=== PATIENT | male | born 1950 | race Two or more races ===

== ENCOUNTER 2024-05-06 04:03 | Day surgery (SDC) | payer OTHER ==
[2024-04-28 14:38] VITALS: BMI 24.2
[2024-05-06] MEDS ORDERED: ACETAMINOPHEN 500 MG TABLET (FP) PO PRN (09:22)
[2024-05-06] MEDS: LIDOCAINE 1% P/F 10 MG/ML VIAL INF ONE (15:32)
[2024-05-06] MEDS: DEXAMETHASONE SOD PHOSPHATE 20 MG/5 ML VIAL IM ONE (15:33)
[2024-05-06] MEDS: LIDOCAINE HCL/PF 2% SDV 5ML VIAL SQ ONE (15:33)
[2024-05-06 16:00] VITALS: BP 109/52; PULSE 74; RESP 18; TEMP 98.7
== END 2024-05-06 16:00 | disposition home or self-care (01) ==
LOC: JASU-SURG 04:03
PROVIDERS: ATTEND Pain Medicine Pain Medicine
PROC: 3E0R3BZ Introduction of Anesthetic Agent into Spinal Canal, Percutaneous Approach (ICD-10-PCS; 2024-05-06)
PROC: 3E0R33Z Introduction of Anti-inflammatory into Spinal Canal, Percutaneous Approach (ICD-10-PCS; principal; 2024-05-06 16:00)
DX: M47.816 Spondylosis without myelopathy or radiculopathy, lumbar region (principal); M54.16 Radiculopathy, lumbar region
CPT/HCPCS: 76000-TC-FY

== ENCOUNTER 2024-06-24 06:15 | Day surgery (SDC) | payer OTHER ==
[2024-06-23 15:48] VITALS: BMI 23.7
[2024-06-24] MEDS ORDERED: LIDOCAINE HCL/PF 1% SDV 5ML VIAL ONE (07:10)
[2024-06-24 07:39] VITALS: RESP 18
[2024-06-24] MEDS: LIDOCAINE 1% P/F 10 MG/ML VIAL PNB ONE (10:17)
[2024-06-24 11:44] VITALS: BP 147/73; PULSE 74; TEMP 97
== END 2024-06-24 11:55 | disposition home or self-care (01) ==
LOC: JASU-SURG 06:15
PROVIDERS: ATTEND Pain Medicine Pain Medicine
PROC: 01HY3MZ Insertion of Neurostimulator Lead into Peripheral Nerve, Percutaneous Approach (ICD-10-PCS; principal; 2024-06-24 09:00)
DX: G89.4 Chronic pain syndrome (principal)
CPT/HCPCS: 64555; C1778

== ENCOUNTER 2024-07-15 04:07 | Day surgery (SDC) | payer OTHER ==
[2024-07-12 16:48] VITALS: BMI 24.0
[2024-07-15 06:48] VITALS: RESP 18
[2024-07-15] MEDS ORDERED: LIDOCAINE HCL/PF 1% SDV 5ML VIAL ONE (07:06)
[2024-07-15] MEDS: LIDOCAINE HCL 1% PRESERVATIVE FREE - 30ML VIAL IJ ONE ×3 (08:37)
[2024-07-15 11:10] VITALS: BP 124/62; PULSE 62; TEMP 97.8
[2024-07-15] MEDS ORDERED: ACETAMINOPHEN 500 MG TABLET (FP) PO PRN (12:56)
== END 2024-07-15 10:06 | disposition home or self-care (01) ==
LOC: JASU-SURG 04:07
PROVIDERS: ATTEND Pain Medicine Pain Medicine
PROC: 01HY3MZ Insertion of Neurostimulator Lead into Peripheral Nerve, Percutaneous Approach (ICD-10-PCS; principal; 2024-07-15 08:00)
DX: G89.4 Chronic pain syndrome (principal)
CPT/HCPCS: 64555; C1778; 76000-TC-FY

== ENCOUNTER 2024-10-12 22:16 | Inpatient (IN) | payer OTHER ==
[2024-10-12] MEDS ORDERED: MORPHINE SULFATE 2 MG/ML SYRINGE ONE (23:16)
[2024-10-12] MEDS: morphine CARPU-JECT 2 MG/1 ML DISP.SYRIN IVPUSH ONE (23:34)
[2024-10-12 23:38] LABS: BASO % 0.3 % (0-2.0); EOS % 5.4 % (0-4.5); HEMATOCRIT 33.6 % (35.4-49); HEMOGLOBIN 11.4 GM/dL (11.7-16.9); LYMPH % 7.5 % (8-40); MCH 31.5 pg (25.7-33.7); MEAN CELL VOLUME 92.8 fl (80-96); MEAN PLT VOLUME 9.2 fl (7.5-11.1); MONO % 4.6 % (3.8-10.2); NEUT % 82.2 % (42.8-82.8); PLATELET COUNT 110 10^3/uL (134-434); RBC 3.62 M/mm3 (4.00-5.60); RDW 14.3 % (11.9-15.9); WHITE BLOOD COUNT 7.2 K/mm3 (4.0-10.0)
[2024-10-12 23:40] LABS: EPI CELLS 2 /uL (0-25.1); HYALINE CASTS 1 /uL (0-3.1); URINE APPEARANCE CLEAR; URINE BACTERIA 3 /uL (0-1359); URINE BILIRUBIN 2+ (NEGATIVE); URINE COLOR DK YELLOW; URINE GLUCOSE (UA) NEGATIVE (NEGATIVE); URINE KETONE TRACE (NEGATIVE); URINE LEUK ESTERASE NEGATIVE (NEGATIVE); URINE NITRITE NEGATIVE (NEGATIVE); URINE PROTEIN 2+ (NEGATIVE); URINE RBC 35 /uL (0-23.9); URINE WBC 7 /uL (0-25.8)
[2024-10-12 23:44] LABS: INR 1.05 (0.83-1.09); PROTHROMBIN TIME (PATIENT) 12.1 SEC (9.7-13.0)
[2024-10-12 23:47] LABS: ACTIVATED PTT 39.3 SECONDS (25.2-36.5)
[2024-10-13 00:04] LABS: POTASSIUM 5.1 mmol/L (3.5-5.1)
[2024-10-13 00:06] LABS: CALCIUM 9.9 mg/dL (8.5-10.1)
[2024-10-13 00:07] LABS: BLOOD UREA NITROGEN 33.4 mg/dL (7-18)
[2024-10-13 00:09] LABS: CREATININE 1.5 mg/dL (0.55-1.3)
[2024-10-13 00:10] LABS: PHOSPHOROUS 3.5 mg/dL (2.5-4.9)
[2024-10-13 00:11] LABS: BILIRUBIN,TOTAL 5.9 mg/dL (0.2-1); TOT PROT 7.2 g/dl (6.4-8.2)
[2024-10-13] MEDS ORDERED: HEPARIN NA (PORCINE) 5,000 UNITS/ML 1ML VIAL SQ SCH (06:00)
[2024-10-13] MEDS: SODIUM CHLORIDE 1,000 ML IV SCH (06:11)
[2024-10-13] MEDS ORDERED: MORPHINE SULFATE 2 MG/ML SYRINGE IVPUSH PRN (06:15)
[2024-10-13] MEDS: INSULIN ASPART SLIDING SCALE (NOVOLOG) 1 VIAL SQ SCH (07:05)
[2024-10-13 07:58] LABS: HEMATOCRIT 26.8 % (35.4-49); HEMOGLOBIN 9.2 GM/dL (11.7-16.9); MCH 32.1 pg (25.7-33.7); MCHC 34.5 g/dl (32.0-35.9); MEAN CELL VOLUME 93.1 fl (80-96); MEAN PLT VOLUME 9.3 fl (7.5-11.1); PLATELET COUNT 110 10^3/uL (134-434); RBC 2.88 M/mm3 (4.00-5.60); RDW 14.3 % (11.9-15.9); WHITE BLOOD COUNT 4.8 K/mm3 (4.0-10.0)
[2024-10-13 08:05] LABS: POTASSIUM 4.7 mmol/L (3.5-5.1)
[2024-10-13 08:07] LABS: CALCIUM 9.5 mg/dL (8.5-10.1)
[2024-10-13 08:08] LABS: BLOOD UREA NITROGEN 27.9 mg/dL (7-18); MAGNESIUM 1.9 mg/dL (1.8-2.4)
[2024-10-13] MEDS: INSULIN (LEVEMIR) 100 UNITS/ML UNITS SQ SCH (08:08)
[2024-10-13 08:09] LABS: BILIRUBIN,DIRECT 3.2 mg/dL (0.0-0.2)
[2024-10-13 08:11] LABS: CREATININE 1.3 mg/dL (0.55-1.3); PHOSPHOROUS 3.8 mg/dL (2.5-4.9)
[2024-10-13 08:12] LABS: TOT PROT 5.6 g/dl (6.4-8.2)
[2024-10-13 08:16] LABS: ALBUMIN 3.2 g/dl (3.4-5.0); BILIRUBIN,TOTAL 3.9 mg/dL (0.2-1)
[2024-10-13 08:26] LABS: INR 1.09 (0.83-1.09); PROTHROMBIN TIME (PATIENT) 12.3 SEC (9.7-13.0)
[2024-10-13] MEDS ORDERED: AMPICILLIN NA/SULBACTAM NA 3 GM in SODIUM CHLORIDE 100 ML IVPB SCH (09:00)
[2024-10-13 09:47] VITALS: BMI 22.1
[2024-10-13] MEDS ORDERED: PATIENT'S OWN MEDICATION (NON-FORMULARY) (Mv-Mn/Iron/Folic Acid/Herb 190 [Vitamin D3 Compl PO SCH (10:00)
[2024-10-13] MEDS ORDERED: INSULIN (LEVEMIR) 100 UNITS/ML UNITS SQ SCH (10:00)
[2024-10-13] MEDS: MULTIVITAMINS (DAILY MVI) TABLET (FP) PO SCH (10:25)
[2024-10-13] MEDS: CARVEDILOL 12.5 MG TABLET (FP) PO SCH (10:25)
[2024-10-13] MEDS: PANTOPRAZOLE 20 MG TABLET PO SCH (10:25)
[2024-10-13] MEDS: PIPERACILLIN/TAZOB 3.375 GM 3.375 GM in DEXTROSE 5%-WATER - 50 ML IVPB SCH (11:42)
[2024-10-13] MEDS: TACROLIMUS ANHYDROUS 1 MG CAPSULE PO SCH (11:43)
[2024-10-13] MEDS: MYCOPHENOLATE MOFETIL 250 MG CAPSULE PO SCH (11:43)
[2024-10-13 12:00] LABS: HIV INTERPRETATION NEGATIVE (NEGATIVE)
[2024-10-13] MEDS: predniSONE 5 MG TABLET (UD) PO SCH (14:20)
[2024-10-14] MEDS: LACTATED RINGERS SOLUTION 1,000 ML IV SCH (14:17)
[2024-10-14] MEDS: LACTATED RINGERS SOLUTION 1000 ML INFUS.BAG IV ONE (14:28)
[2024-10-15 06:47] VITALS: RESP 18
[2024-10-15 08:42] LABS: BASO % 0.4 % (0-2.0); EOS % 5.8 % (0-4.5); HEMATOCRIT 26.1 % (35.4-49); HEMOGLOBIN 8.8 GM/dL (11.7-16.9); LYMPH % 20.4 % (8-40); MCH 31.6 pg (25.7-33.7); MCHC 33.8 g/dl (32.0-35.9); MEAN CELL VOLUME 93.4 fl (80-96); MEAN PLT VOLUME 8.9 fl (7.5-11.1); MONO % 6.2 % (3.8-10.2); NEUT % 67.2 % (42.8-82.8); PLATELET COUNT 107 10^3/uL (134-434); RBC 2.79 M/mm3 (4.00-5.60); WHITE BLOOD COUNT 3.1 K/mm3 (4.0-10.0)
[2024-10-15 08:47] LABS: INR 0.95 (0.83-1.09); PROTHROMBIN TIME (PATIENT) 10.7 SEC (9.7-13.0)
[2024-10-15 09:18] LABS: POTASSIUM 3.7 mmol/L (3.5-5.1)
[2024-10-15 09:20] LABS: CALCIUM 9.3 mg/dL (8.5-10.1)
[2024-10-15 09:21] LABS: BLOOD UREA NITROGEN 21.6 mg/dL (7-18)
[2024-10-15 09:22] LABS: MAGNESIUM 1.6 mg/dL (1.8-2.4)
[2024-10-15 09:24] LABS: CREATININE 1.2 mg/dL (0.55-1.3)
[2024-10-15 09:25] LABS: BILIRUBIN,TOTAL 2.2 mg/dL (0.2-1); TOT PROT 5.6 g/dl (6.4-8.2)
[2024-10-15] MEDS: BACITRACIN ZINC 15 GM TUBE TOPICAL OINTMENT TP SCH (09:34)
[2024-10-15 11:31] VITALS: BP 133/64; PULSE 66; TEMP 98.1
[2024-10-15] MEDS: POTASSIUM CHLORIDE TABS 20 MEQ TABLET.ER (FP) PO ONE (11:38)
[2024-10-15] MEDS: AMOX TR/POT CLAV 875MG/125MG TABLETS (FP) PO SCH (11:38)
[2024-10-15] MEDS: MAGNESIUM OXIDE 400 MG TABLET (FP) PO ONE (11:38)
[2024-10-16 05:07] LABS: TACROLIMUS FK506 BLOOD 3.2 ng/mL (2.0-20.0)
== END 2024-10-15 13:46 | disposition home or self-care (01) | DRG 445 ==
LOC: JER 22:16 → JERBED 10-13 03:56 → J8W 10-13 06:49 → OBSVTOIN 10-13 09:20
PROVIDERS: ADMIT Internal Medicine; ATTEND Nurse Practitioner Acute Care
PROC: 0FC98ZZ Extirpation of Matter from Common Bile Duct, Via Natural or Artificial Opening Endoscopic (ICD-10-PCS; principal; 2024-10-14 12:30)
DX: K80.51 Calculus of bile duct without cholangitis or cholecystitis with obstruction (principal); R17 Unspecified jaundice; Z94.0 Kidney transplant status; D64.9 Anemia, unspecified; I12.9 Hypertensive chronic kidney disease with stage 1 through stage 4 chronic kidney disease, or unspecified chronic kidney disease; E11.22 Type 2 diabetes mellitus with diabetic chronic kidney disease; N18.9 Chronic kidney disease, unspecified; R11.2 Nausea with vomiting, unspecified
CPT/HCPCS: 36415; 74177-TC; 74181-TC; 76000-TC-FY; 80053; 80180; 80197; 81003; 82248; 82550; 82728; 82962; 83540; 83550; 83605; 83690; 83735; 84100; 84484; 85025; 85027; 85045; 85610; 85730; 86705; 86707; 86708; 86803; 86850; 86900; 86901; 87086; 87340; 87350; 87389; 87517; 93005; 93010; 99285-25; G0378; J7517; Q9967